=== PATIENT | female | born 1995 | race Caucasian/White ===

== ENCOUNTER 2018-05-31 08:00 | Inpatient (IN) ==
[2018-05-31] MEDS ORDERED: Famotidine 20 MG/2 ML VIAL IVP PRN (08:03)
[2018-05-31] MEDS ORDERED: *HR* Nalbuphine 10 MG/ML AMPUL IVP PRN (08:03)
[2018-05-31] MEDS ORDERED: Ondansetron 4 MG/2 ML VIAL IVP PRN (08:03)
[2018-05-31] MEDS ORDERED: Naloxone 0.4 MG/ML INJ IVP PRN (08:03)
[2018-05-31] MEDS ORDERED: Metoclopramide 10 MG/2 ML VIAL IVP PRN (08:03)
[2018-05-31] MEDS ORDERED: Lidocaine 1% 20 ML MDV INFILT PRN (08:03)
[2018-05-31] MEDS ORDERED: Oxytocin 20 units/ LR 1000 mL 20 UNIT/1,000 ML BAG IVC SCH ×2 (08:15→20:35)
[2018-05-31] MEDS ORDERED: Ringers Solution, Lactated 1,000 ML IVC SCH (08:15)
[2018-05-31 09:07] LABS: Basophils % 0.2 %; Eosinophils % 0.3 %; Hematocrit 39.8 % (35.3-44.9); Hemoglobin 13.4 g/dL (11.5-15.4); Immature Granulocytes % 0.5 % (0-4); Lymphocytes # 1.9 K/mcL (0.6-4.6); Mean Corpuscular HGB Conc 33.7 g/dL (31.6-35.5); Mean Corpuscular Hemoglobin 30.4 pg (28.0-33.3); Mean Corpuscular Volume 90.2 fL (83.0-100.0); Mean Platelet Volume 10.4 fL (9.4-12.4); Monocytes # 0.9 K/mcL (0.0-1.3); Monocytes % 7.5 %; Neutrophils # 8.9 K/mcL (1.6-8.9); Platelet Count 211 K/mcL (140-400); Red Blood Count 4.41 M/mcL (3.82-4.97); Red Cell Distribution Width 13.2 % (11.5-14.5); Segmented Neutrophils % 75.5 %
[2018-05-31 09:31] LABS: Amphetamine Screen,Urine Negative ng/mL (Cutoff=1000); Barbiturate Screen,Urine Negative ng/mL (Cutoff=200); Benzodiazepines Screen,Urine Negative ng/mL (Cutoff=200); Cannabinoid Screen,Urine Negative ng/mL (Cutoff = 50); Cocaine Screen,Urine Negative ng/mL (Cutoff= 300); Opiate Screen,Urine Negative ng/mL (Cutoff=300); Phencyclidine Screen,Urine Negative ng/mL (Cutoff=25)
--- NOTE | 2018-05-31 10:18 | OB/GYN History & Physical ---
Date of Encounter: 05/31/18 Time of Encounter: 10:16 Assessment and Plan (1) 39 weeks gestation of Current visit: Yes Status: Acute NST Reactive, FHR baseline 145bpm. Anticipate . (2) Elective induction of labor planned Current visit: Yes Status: Acute Per request of Dr. Trivedi, 30ml cruz placed and Pitocin started. Epidural when desired. Anticipate . History of Present Illness HPI: Ms. Potter is a 23 year old female at 39w1d that presents for IOL. Pt denies contractions, LOF or VB. Reports good FM. Denies complications with this or her previous delivery. O Positive GBS Negative Rubella immune Serologies Negative Past Med Surg Social Fam HX - Past Medical History Medical history: no medical history Psychiatric history: no psych history - Past Surgical History Surgical History: no surgical history - Social History Smoking Status: Never smoker Smokeless Tobacco Status: No Alcohol use: none Drug use: none - Family History Mother Adopted: [place]: Uzma Ramirez Age: 50 Family Member Ethnicity: Non- Living Status: Still Living Hx Family Cardiac Disorders: No Hx Family Respiratory Disorders: No Hx Family Cancer: No Hx Family GI Disorders: No Hx Family Genitourinary Disorders: Yes (patient unsure of specific issue) Hx Family Endocrine Disorder: No Hx Family Musculoskeletal Disorders: No Hx Family Neuromuscular Disorders: No Hx Family Neurologic Disorders: No Hx Family HEENT Disorders: No Hx Family Autoimmune Disorders: No Hx Family Reproductive Disorders: No Hx Family Psychosocial Disorders: No Hx Family Medical Disorders: No Obstetrical History - Pregnancies : 3 Para: 1 Term: 1 : 0 Ab's: 1 Livin Medications and Allergies Pnv Cmb#21/Iron/Folic Acid [ Complete Caplet] 1 each PO DAILY 05/31/18 [ History] 3 Allergy/AdvReac Type Severity Reaction Status Date / Time cephalexin [From Keflex] AdvReac Dizziness Verified 05/31/18 08:34 Review of System OB All systems PM: reviewed and no additional remarkable complaints except as stated Exam - Constitutional Constitutional: well developed, well nourished, no acute distress, average body habitus - Lungs Respiratory exam: CTAB - Cardiovascular Cardiovascular exam: RRR, +S1, +S2 - Abdomen Abdomen: Present: bowel sounds normal, gravid, non tender - Extremities Extremities exam: normal inspection - Cervix Dilation: 1 Effacement: 70 Station: -2 Results Result Diagrams: 05/31/18 08:45 Abnormal lab results WBC 11.7 K/mcL (4.3-11.1) H 05/31/18 08:45 All other labs normal. - VTE Reasons for not Prescribing Prophylaxis: Treatment not Indicated - Low risk for VTE
--- NOTE | 2018-05-31 11:40 | Anesthesia Evaluation PreOp ---
Date of Encounter: 05/31/18 Time of Encounter: 11:38 - Past History Planned Operation: SALOME Cardiac History: Denies any Significant Hx Pulmonary History: Denies Any Significant HX EDUCATION OFFICER History: Denies Any Significant HX Other Medical History: Denies Any Significant HX Anesthesia History: No Prior Anesthetic Complications (previous SALOME x 1--no complications; denies having any procedure requring GA; denies family h/o GA complications) : Yes Test: Positive Alcohol Use: none Drug use: none Medications and Allergies Pnv Cmb#21/Iron/Folic Acid [ Complete Caplet] 1 each PO DAILY 05/31/18 [ History] 3 Allergy/AdvReac Type Severity Reaction Status Date / Time cephalexin [From Keflex] AdvReac Dizziness Verified 05/31/18 08:34 - Meds/Allergy Pre-op Review Medications Reviewed: Yes Allergies Reviewed: Yes Beta Blockers on Current Med List: No Anesthesia Results - Labs 05/31/18 08:45 Anesthesia Exam 119/75, HR 79, RR 16 O2 Sat Height 1.73 m Weight 87.4 kg NPO (# of Hours): solids > 4h Pain Scale: 5 Pain Scale Used: Numeric (1 - 10) - HEENT Pupil (Motor): Pupils equal Mallampati: I Teeth: Normal Oral Opening: Greater than 3 - EDUCATION OFFICER LOC: Oriented EDUCATION OFFICER Motor: Normal RUE, Normal LUE, Normal RLE, Normal LLE, Normal Face EDUCATION OFFICER Sensory: Normal: RUE, LUE, RLE, LLE, Face - Cardiac Rhythm: Regular Murmur: None - Pulmonary Breath Sounds: bilateral Clear Respiratory Effort: Symmetrical Anesthesia Assess/Plan ASA Score: 2 Modified Saima Scale for Level of Consciousness: Cooperative, oriented, and tranquil Anesthetic Plan: Regional Autologous Blood: No Monitoring Plan: Standard Monitors Recovery Plan: Other
[2018-05-31] MEDS ORDERED: Bupivacaine-MPF 0.25% 10 ML VIAL EP ONE (11:41)
[2018-05-31] MEDS ORDERED: *HR* FentaNYL (PF) 100 MCG/2 ML VIAL EP ONE (11:41)
[2018-05-31] MEDS ORDERED: Lidocaine -MPF 1% 5 ML AMPUL ONE (11:43)
[2018-05-31] MEDS ORDERED: Epidural Premix (fent/bupiv) 110 ML EP SCH (11:45)
[2018-05-31] MEDS ORDERED: Epidural Premix (fent/bupiv) 110 ML EP ONE (11:48)
--- NOTE | 2018-05-31 12:36 | OB Labor Progress Note ---
Date of Encounter: 05/31/18 Time of Encounter: 12:33 Labor Progress Note - Subjective Subjective: Swain out after [address] Trivedi updated. - Cervix Cervix: 4cm/80%/-1 - Heart Tones Heart Tones: Category I - Interventions Interventions: Per Dr. Trivedi's request, AROM for small amount of clear fluid. IUPC placed. - Plan Plan: Advance Pitocin as appropriate. Epidural when desired. Anticipate .
--- NOTE | 2018-05-31 16:49 | Anesthesia Procedures ---
Date of Encounter: 05/31/18 Time of Encounter: 16:47 Procedures: Anesthesia - Epidural/Spinal Patient ID/Chart reviewed: Yes Patient examined: Yes OB Eval: Gestational age: 39 weeks 1 day OB Eval: : 3 OB Eval: Hx Para: 1 OB Eval: Dilated at (cm): 4 OB Eval: Contractions: Non-stressed pattern Consent Obtained: Yes Supplemental Oxygen: None/Room Air Site Prep: Aseptic Technique, Sterile prep and drape, Povidone-Iodine 1% Patient position: upright Local Anesthetic: Lidocaine 1% Amount of Local Anesthetic used: 5 Touhy Needle Gauge: 18 Touhy Needle Depth (cm): 5 (technically 5.5cm) Catheter Depth at Skin (cm): 10 (technically 10.5cm) Test Dose (1.5% Lido + Epi): Volume given (mls): 5 (given in 2 divided doses over a period of 5min) Test Dose Result: Positive (sensory anesthesia obtained; converted 8/10 labor pain to 0/10. Will manage catheter as being intrathecal) Loading Dose: 0.25% Marcaine (mls): 1 Loading Dose: Fentanyl (mcg): 10 Loading Dose Administered: Thru Catheter Infusion Med: 0.125% Bupivacaine w/ 2 mcg/ml Fentanyl Infusion Rate (mls/hr): 1 (technically 1.6mL/hr w/ demand bolus of 0.5mL q30min PRN) Catheter Secured in Place: Tegaderm, Tape Interspace Used: L3-L4 Loss of Resistance (RONALD): Yes Blood: No CSF: Yes (when advancing epidural catheter through Touhy Needle) Paresthesia: Yes (LLE when advancing catheter; patient reports improvement in sensation ) Procedure: successful on 2nd attempt; patient tolerated procedure well; VSS Vitals + FHT's: see Viridiana PEREZ's electronic records for VS entry
--- NOTE | 2018-05-31 19:53 | OB/GYN Procedure Note ---
Delivery - Delivery Date: 05/31/18 Provider: Arleth Trivedi Intrapartum events: none Delivery induction: AROM Delivery augmentation: rupture of membranes, pitocin Delivery monitor: external FHT, external uterine, internal uterine Anesthesia: epidural Quantitated Blood Loss: 300 - (s) Infant A Delivery Date: 05/31/18 Delivery Time: 19:24 Presentation: transverse lie Position: ROT Route of delivery: Gender: Male Viability: Viable Pounds: 8 Ounces: 13 at 1 minute: 6 at 5 mins: 9 Shoulder Dystocia: not encountered Specimens collected: cord blood Placenta: spontaneous Cord: nuchal cord, delivered through nuchal - Repair Episiotomy: none Laceration Description: Perineal - 2nd Degree, Labial - Complications Delivery complications: none Delivery comments: 23yo at 39+wks GA who presents for scheduled eIOL Called to evaluate patient at bedside. Found to be C/C/+1. WIth excellent maternal effort, infant was delivered in the OT position. Gentle downward traction was given at the time of delivery of the anterior shoulder. A tight nuchal was appreciated and delivered through. Infant appeared stunned given head compression therefore there was not a complete 60 second cord delay. The cord was clamped and cut and the infant was handed off to the warmer. Cord gases were collected. Delivery of the placenta occurred spontaneously with gentle traction. 3VC appreciated, normal cord insertion. Placenta was not sent for pathology. Examination of the perineum was performed and a second degree perineal laceration was appreciated. The laceration was repaired in the usual fashion using a 3-0 vicryl. Hemostasis was appreciated following repair. Fundus was palpated and firm 2U. Time of delivery: 1923 Placenta delivery: 1929 Gender: Male Weight: 8#13oz Repair 2nd degree laceration EBL: 300mL Apgars: 6,9 ABO type: O+ MD TAYLOR - Disposition Mom disposition: stable in LDR
[2018-05-31] MEDS ORDERED: Measles/Mumps/Rubella Vacc 0.5 ML VIAL SQ PRN (20:35)
[2018-05-31] MEDS ORDERED: Acetaminophen 325 MG TABLET PO PRN (20:35)
[2018-05-31] MEDS ORDERED: Rho Immune Globulin 1,500 UNIT SYRINGE IM PRN (20:35)
[2018-06-01 07:06] LABS: Basophils % 0.2 %; Eosinophils % 0.3 %; Hematocrit 33.4 % (35.3-44.9); Immature Granulocytes % 0.6 % (0-4); Lymphocytes # 2.2 K/mcL (0.6-4.6); Lymphocytes % 15.1 %; Mean Corpuscular HGB Conc 33.2 g/dL (31.6-35.5); Mean Corpuscular Hemoglobin 30.2 pg (28.0-33.3); Mean Platelet Volume 10.5 fL (9.4-12.4); Monocytes # 1.8 K/mcL (0.0-1.3); Monocytes % 12.1 %; Neutrophils # 10.4 K/mcL (1.6-8.9); Platelet Count 184 K/mcL (140-400); Red Blood Count 3.67 M/mcL (3.82-4.97); Red Cell Distribution Width 13.2 % (11.5-14.5); Segmented Neutrophils % 71.7 %
[2018-06-01 07:08] LABS: Hemoglobin 11.1 g/dL (11.5-15.4)
[2018-06-01] MEDS ORDERED: Prenatal Vit/FA 1 EACH TABLET PO SCH (09:00)
[2018-06-01] MEDS ORDERED: Ibuprofen 600 MG TABLET PO PRN (09:23)
--- NOTE | 2018-06-01 09:33 | Discharge Summary ---
Date of Encounter: 06/01/18 Time of Encounter: 09:31 - Discharge Diagnosis (1) Vaginal delivery Priority: Primary Status: Acute Comments: Feeling well. Pain well controlled with by mouth pain meds Tolerating regular diet Voiding independently Lochia light Passing flatus, no BM yet Ambulating independently Vital signs stable Discharge home today - Discharge Medications Prescriptions: Ibuprofen [Motrin] 600 mg PO Q6HR PRN #30 tablet PRN Reason: Pain Docusate [Colace] 100 mg PO BID #30 capsule Home Medications: Pnv Cmb#21/Iron/Folic Acid [ Complete Caplet] 1 each PO DAILY 05/31/18 [ History] Acetaminophen [Tylenol] 650 mg PO Q6HR PRN tablet 06/01/18 [Rx] Docusate [Colace] 100 mg PO BID #30 capsule 06/01/18 [Rx] Ibuprofen [Motrin] 600 mg PO Q6HR PRN #30 tablet 06/01/18 [Rx] Allergies/Adverse Reactions: 3 Allergy/AdvReac Type Severity Reaction Status Date / Time cephalexin [From Keflex] AdvReac Dizziness Verified 05/31/18 08:34 Data Procedures and tests throughout hospitalization: Laboratory Tests 05/31/18 05/31/18 06/01/18 08:45 08:45 06:01 WBC 11.7 H 14.5 H RBC 4.41 3.67 L Hgb 13.4 11.1 L D Hct 39.8 33.4 L MCV 90.2 91.0 MCH 30.4 30.2 MCHC 33.7 33.2 RDW 13.2 13.2 Plt Count 211 184 MPV 10.4 10.5 Immature Gran % 0.5 0.6 Seg Neutrophils % 75.5 71.7 Lymphocytes % 16.0 15.1 Monocytes % 7.5 12.1 Eosinophils % 0.3 0.3 Basophils % 0.2 0.2 Neutrophils # 8.9 10.4 H Lymphocytes # 1.9 2.2 Monocytes # 0.9 1.8 H Eosinophils # 0.0 0.0 Basophils # 0.0 0.0 Urine Opiates Screen Negative Ur Barbiturates Screen Negative Ur Phencyclidine Scrn Negative Ur Amphetamines Screen Negative U Benzodiazepines Scrn Negative Urine Cocaine Screen Negative U Marijuana (THC) Screen Negative Ur Drug Screen Interp See Below Labs on day of discharge: Labs from last 24 hours 06/01/18 05/31/18 06:01 08:45 WBC 14.5 H RBC 3.67 L Hgb 11.1 L D Hct 33.4 L MCV 91.0 MCH 30.2 MCHC 33.2 RDW 13.2 Plt Count 184 MPV 10.5 Immature Gran % 0.6 Seg Neutrophils % 71.7 Lymphocytes % 15.1 Monocytes % 12.1 Eosinophils % 0.3 Basophils % 0.2 Neutrophils # 10.4 H Lymphocytes # 2.2 Monocytes # 1.8 H Eosinophils # 0.0 Basophils # 0.0 Urine Opiates Screen Negative Ur Barbiturates Screen Negative Ur Phencyclidine Scrn Negative Ur Amphetamines Screen Negative U Benzodiazepines Scrn Negative Urine Cocaine Screen Negative U Marijuana (THC) Screen Negative Date of admission: 05/31/18 08:00 Primary care physician: Poncho Ornelas MD Consults: 05/31/18 20:35 Consult to Landscape Contractor [CONS] Routine Comment: Vaginal delivery, consult needed Discharging clinician: Arleth Duke Anticipated date of discharge: 06/01/18 - Patient Status Disposition: Home, Self-Care Condition: Good Functional capacity at discharge: independent ambulation Overall status at discharge: patient is progressing back to baseline - Discharge Instructions Follow Up With: Poncho Ornelas MD [Primary Care Provider] - Arleth Trivedi MD [Partnered Physician] - - Diet and Activity Activity: increase activity as tolerated Diet: regular diet Hospital Course Procedures: Reason for admission: induction of labor, IUP at term Delivery: Episiotomy: none Laceration: 2nd degree, other (labial) Other procedures: none complications: none Discharge diagnosis: IUP at term delivered [place] baby: male Time Attestation: Total time spent providing and/or coordinating discharge services: Time Spent: Less than 30 minutes Exam - Constitutional Vitals: Temp Pulse Resp BP Pulse Ox 98.1 F 91 16 120/76 98 06/01/18 09:22 06/01/18 09:22 06/01/18 09:22 06/01/18 09:22 06/01/18 09:22 General appearance IM: A&O X 3 - Respiratory Respiratory exam: Present: CTAB - Cardiovascular Cardiovascular exam IM: Present: RRR, +S1, +S2 - GI/Abdominal GI/Abdominal exam IM: normal bowel sounds, no peritoneal signs - Rectal Rectal exam: deferred - Uterine Tone: Firm Uterus Position: 1 Finger Below Umbilicus, Midline - Extremities Exam Extremities exam IM: Present: normal capillary refill, normal inspection, radial pulses palpable and symmetrical - Neurological Exam Neurological exam: alert, CN II-XII intact, normal gait, oriented X3, reflexes normal, no focal deficits, strengths equal and symetr throughout - Psychiatric Additional comments: Patient denies history of anxiety and depression. Signs and symptoms of depression discussed with patient and partner and both verbalize understanding of when to seek help.
[2018-06-01 18:32] VITALS: BP 119/67
== END 2018-06-01 20:20 | disposition home or self-care (01) | DRG 807 ==
LOC: 1NENULAB 08:00 → 1NENUOBS 22:01
PROVIDERS: ADMIT Student in an Organized Health Care Education/Training Program; ATTEND Student in an Organized Health Care Education/Training Program

== ENCOUNTER 2020-12-15 07:47 | Inpatient (IN) ==
[2020-12-15] MEDS ORDERED: Lidocaine 1% 20 ML MDV INFILT PRN (08:37)
[2020-12-15] MEDS ORDERED: Naloxone 0.4 MG/ML INJ IVP PRN (08:37)
[2020-12-15] MEDS ORDERED: Famotidine 20 MG/2 ML VIAL IVP PRN (08:37)
[2020-12-15] MEDS ORDERED: miSOPROStoL 25 MCG TABLET VG PRN (08:37)
[2020-12-15] MEDS ORDERED: Metoclopramide 10 MG/2 ML VIAL IVP PRN (08:37)
[2020-12-15] MEDS ORDERED: Ondansetron 4 MG/2 ML VIAL IVP PRN (08:37)
[2020-12-15] MEDS ORDERED: Azithromycin 500 MG in 0.9 % Sodium Chloride 250 ML IVPB PRN (08:37)
[2020-12-15] MEDS ORDERED: *HR* Nalbuphine 10 MG/ML AMPUL IV PRN (08:37)
[2020-12-15] MEDS ORDERED: Penicillin G Potassium 5,000,000 UNIT in 0.9 % Sodium Chloride Mini Bag 100 ML IVPB ONE (08:39)
[2020-12-15] MEDS ORDERED: Oxytocin 20 units/ LR 1000 mL 20 UNIT/1,000 ML BAG IVC SCH ×2 (08:45→19:22)
[2020-12-15 09:41] LABS: Basophils % 0.3 %; Eosinophils % 0.4 %; Hematocrit 37.3 % (35.3-44.9); Hemoglobin 12.6 g/dL (11.5-15.4); Immature Granulocytes % 0.7 % (0-4); Lymphocytes # 1.8 K/mcL (0.6-4.6); Lymphocytes % 16.7 %; Mean Corpuscular HGB Conc 33.8 g/dL (31.6-35.5); Mean Corpuscular Hemoglobin 30.4 pg (28.0-33.3); Mean Corpuscular Volume 89.9 fL (83.0-100.0); Mean Platelet Volume 10.6 fL (9.4-12.4); Monocytes # 1.1 K/mcL (0.0-1.3); Monocytes % 10.3 %; Neutrophils # 7.7 K/mcL (1.6-8.9); Platelet Count 183 K/mcL (140-400); Red Blood Count 4.15 M/mcL (3.82-4.97); Red Cell Distribution Width 13.3 % (11.5-14.5); Segmented Neutrophils % 71.6 %; White Blood Count 10.8 K/mcL (4.3-11.1)
[2020-12-15] MEDS ORDERED: EPHEDrine 50 MG/ML VIAL IVP PRN (09:47)
[2020-12-15 09:53] LABS: Amphetamine Screen,Urine Negative ng/mL (Cutoff=1000); Barbiturate Screen,Urine Negative ng/mL (Cutoff=200); Benzodiazepines Screen,Urine Negative ng/mL (Cutoff=200); Cannabinoid Screen,Urine Negative ng/mL (Cutoff = 50); Cocaine Screen,Urine Negative ng/mL (Cutoff= 300); Opiate Screen,Urine Negative ng/mL (Cutoff=300); Phencyclidine Screen,Urine Negative ng/mL (Cutoff=25)
[2020-12-15 09:55] LABS: Influenza A PCR Negative (Negative); Influenza B PCR Negative (Negative); Resp. Syncytial Virus PCR Negative (Negative)
[2020-12-15] MEDS ORDERED: Epidural Premix (fent/bupiv) 110 ML EP SCH (10:00)
[2020-12-15 10:11] LABS: SARS-CoV-2 by PCR (In House) Negative (Negative)
[2020-12-15] MEDS: Ringers Solution, Lactated 1,000 ML IVC SCH ×2 (10:15→16:17)
[2020-12-15] MEDS ORDERED: Penicillin G Potassium 2,500,000 UNIT/105 ML MLS IVPB SCH (12:00)
[2020-12-15] MEDS ORDERED: Ibuprofen 600 MG TABLET PO PRN (19:22)
[2020-12-15] MEDS ORDERED: Benzocaine/Menthol 56 GM AEROSOL SPRAY TP PRN (19:22)
[2020-12-15] MEDS ORDERED: Acetaminophen 325 MG TABLET PO PRN (19:22)
[2020-12-16 07:36] VITALS: BP 109/69
[2020-12-16] MEDS ORDERED: Prenatal Vit/FA 1 EACH TABLET PO SCH (09:00)
== END 2020-12-16 19:10 | disposition home or self-care (01) | DRG 807 ==
LOC: 1NENULAB 07:47 → 1NENUOBS 22:08
PROVIDERS: ADMIT Registered Nurse; ATTEND Registered Nurse